=== PATIENT | female | born 1990 | race African-American/Black ===

== ENCOUNTER 2019-07-21 19:00 | Emergency (ER) | payer MEDICAID ==
[~2019-07-21] VITALS: Ht 165.1 cm; Wt 91.0 kg
[2019-07-21] MEDS ORDERED: CEFTRIAXONE 1 G PREMIX 50 ML IV ONE (23:30)
[2019-07-21] MEDS ORDERED: SODIUM CHLORIDE 0.9% 1000ML BAG (SEPSIS BOLUS) IV ONE (23:30)
[2019-07-22 00:48] LABS: BASOPHILS % 0.3 % (0.0-2.0); EOSINOPHILS % 0.3 % (0.0-5.0); INR 1.3; LYMPHOCYTES % 25.8 % (20.0-50.0); MEAN PLATELET VOLUME 8.7 fl (7.4-10.4); MONOCYTES % 9.1 % (2.0-8.0); NEUTROPHILS % 64.5 % (40.0-76.0); PLATELET 207 x1000/uL (130-400); PROTHROMBIN TIME 12.8 sec (9.6-11.0); RED BLOOD CELL COUNT 3.46 mill/uL (4.2-5.4); RED CELL DISTRIBUTION WIDTH 15.6 % (11.6-14.6)
[2019-07-22 00:52] LABS: CHLORIDE 104 mEq/L (98-107)
[2019-07-22 01:11] LABS: CLARITY URINE CLOUDY (CLEAR); COLOR URINE YELLOW (YELLOW); KETONES URINE 1+ (NEGATIVE); LEUKOCYTE ESTERASE URINE NEGATIVE (NEGATIVE); NITRITE URINE NEGATIVE (NEGATIVE); OCCULT BLOOD URINE NEGATIVE (NEGATIVE); PROTEIN URINE 1+ (NEGATIVE); SPECIFIC GRAVITY URINE 1.023 (1.005-1.030)
[2019-07-22] MEDS ORDERED: POTASSIUM CHLORIDE 20MEQ TABLET SR PO SCH (01:19)
[2019-07-22] MEDS ORDERED: ACETAMINOPHEN 500MG TABLET PO SCH (02:00)
[2019-07-22] MEDS ORDERED: KETOROLAC 15MG/ML VIAL IV SCH (02:00)
[2019-07-22 03:19] VITALS: BP 113/52
== END 2019-07-22 02:40 | disposition short-term general hospital (02) ==
LOC: ER 19:00 → CANBEDREQ 07-22 04:14
DX: L03.116 Cellulitis of left lower limb (principal); R50.9 Fever, unspecified; T36.8X5A Adverse effect of other systemic antibiotics, initial encounter; Y92.9 Unspecified place or not applicable
CPT/HCPCS: 36415; 71045; 80053; 81003; 83605; 84145; 84484; 85025; 85610; 87040; 87086; 87804; 93005; 96365; 96375; 99285; J0696; J1885; J7030

== ENCOUNTER 2022-04-22 04:48 | Emergency (ER) | payer MEDICAID, OTHER ==
[~2022-04-22] VITALS: Ht 175.3 cm; Wt 75.0 kg
[2022-04-22 04:52] VITALS: BP 130/90
[2022-04-22] MEDS ORDERED: BACITRACIN ZINC OINT UDPKT TOP ONE (05:30)
[2022-04-22] MEDS ORDERED: LIDOCAINE HCL/PF 1% 10 MG/ML 5ML VIAL INFIL ONE (05:30)
[2022-04-22] MEDS ORDERED: ACETAMINOPHEN WITH CODEINE 300/30MG TABLET PO ONE (05:30)
[2022-04-22] MEDS ORDERED: SULF1TAB48 MT (06:04)
[2022-04-22] MEDS ORDERED: CEPH500C2 MT (06:04)
== END 2022-04-22 06:53 | disposition home or self-care (01) ==
LOC: ER 04:48
DX: L02.415 Cutaneous abscess of right lower limb (principal); L03.115 Cellulitis of right lower limb
CPT/HCPCS: 10060; 99283; J3490; Z7610

== ENCOUNTER 2022-05-19 06:14 | Emergency (ER) | payer MEDICAID ==
[~2022-05-19] VITALS: Ht 160 cm; Wt 54.0 kg
[~2022-05-19 06:14] MED LIST: CEPH500C2 MT; SULF1TAB48 MT
[2022-05-19 06:15] VITALS: BP 128/83
[2022-05-19] MEDS ORDERED: ACETAMINOPHEN 325MG TABLET PO STA (07:57)
[2022-05-19 08:38] LABS: BASOPHILS % 0.6 % (0.0-2.0); EOSINOPHILS % 1.7 % (0.0-5.0); HEMATOCRIT. 37.1 % (36.0-48.0); HEMOGLOBIN. 12.1 g/dL (12.0-16.0); LYMPHOCYTES % 25.4 % (20.0-50.0); MEAN CORPUSCULAR HEMOGLOBIN 25.8 pg (28.0-32.0); MEAN CORPUSCULAR VOLUME 79.1 fL (81.0-99.0); MEAN PLATELET VOLUME 8.7 fl (7.4-10.4); MONOCYTES % 5.7 % (2.0-8.0); NEUTROPHILS % 66.6 % (40.0-76.0); PLATELET 456 x1000/uL (130-400); RED BLOOD CELL COUNT 4.69 mill/uL (4.2-5.4); RED CELL DISTRIBUTION WIDTH 15.8 % (11.6-14.6)
[2022-05-19 08:52] LABS: CHLORIDE 107 mEq/L (98-107)
[2022-05-19] MEDS ORDERED: POTASSIUM CHLORIDE 20MEQ TABLET SR PO NR (09:30)
[2022-05-19] MEDS ORDERED: CEPH500C2 MT (10:57)
[2022-05-19] MEDS ORDERED: POTA-204 MT (10:57)
[2022-05-19] MEDS ORDERED: IBUP-2029 MT (10:57)
[2022-05-19] MEDS ORDERED: CEPHALEXIN 250MG CAPSULE PO NR (11:00)
== END 2022-05-19 11:27 | disposition home or self-care (01) ==
LOC: ER 06:14
DX: L03.116 Cellulitis of left lower limb (principal); E87.6 Hypokalemia; Z13.9 Encounter for screening, unspecified
CPT/HCPCS: 36415; 80053; 85025; 93971; 99284

== ENCOUNTER 2023-10-18 12:48 | Emergency (ER) | payer MEDICAID ==
[~2023-10-18] VITALS: Ht 160 cm; Wt 59.0 kg
[~2023-10-18 12:48] MED LIST changes: +IBUP-2029 MT; +POTA-204 MT
[2023-10-18 13:01] VITALS: TEMP 97.8; O2SAT 100
[2023-10-18 16:03] LABS: BASOPHILS % 0.5 % (0.0-2.0); DIFFERENTIAL COMMENT 0; EOSINOPHILS % 1.6 % (0.0-5.0); HEMATOCRIT. 35.5 % (36.0-48.0); HEMOGLOBIN. 11.8 g/dL (12.0-16.0); MEAN CORPUSCULAR HEMOGLOBIN 25.5 pg (28.0-32.0); MEAN CORPUSCULAR HGB CONC 33.3 g/dL (31.0-37.0); MEAN CORPUSCULAR VOLUME 76.5 fL (81.0-99.0); MEAN PLATELET VOLUME 8.2 fl (7.4-10.4); MONOCYTES % 6.3 % (2.0-8.0); NEUTROPHILS % 75.6 % (40.0-76.0); PLATELET 312 x1000/uL (130-400); RED BLOOD CELL COUNT 4.64 mill/uL (4.2-5.4); RED CELL DISTRIBUTION WIDTH 15.9 % (11.6-14.6)
[2023-10-18 16:20] LABS: ALANINE AMINOTRANSFERASE 19 IU/L (10-49); ALBUMIN 4.2 g/dL (3.2-4.8); ASPARTATE AMINOTRANSFERASE 17 IU/L (<34); BILIRUBIN TOTAL 0.4 mg/dL (0.1-1.0); CALCIUM 9.1 mg/dL (8.7-10.4); CARBON DIOXIDE 30 mEq/L (21-32); CHLORIDE 108 mEq/L (98-107); CREATININE 0.5 mg/dL (0.6-1.0); GLUCOSE 94 mg/dL (70-105); POTASSIUM 3.5 mEq/L (3.5-5.1); PROTEIN TOTAL 8.1 g/dL (6.0-8.3); SODIUM 140 mEq/L (136-145); UREA NITROGEN BLOOD 16 mg/dL (9-23)
[2023-10-18 16:21] LABS: HCG SCREEN NEGATIVE
[2023-10-18 16:44] LABS: ETHANOL BLOOD < 10 mg/dL (<10)
[2023-10-18] MEDS ORDERED: AMOX1TAB16 MT (17:01)
[2023-10-18] MEDS ORDERED: IBUP-2029 MT (17:01)
[2023-10-18] MEDS ORDERED: AZIT250T12 MT (17:01)
[2023-10-18 17:23] VITALS: BP 146/90; PULSE 83; RESP 16
[2023-10-18] MEDS: IBUPROFEN 600MG TABLET PO ONE (17:23)
== END 2023-10-18 20:29 | disposition home or self-care (01) ==
LOC: ER 12:48
DX: J18.1 Lobar pneumonia, unspecified organism (principal); R07.81 Pleurodynia; Z79.899 Other long term (current) drug therapy; Y04.0XXA Assault by unarmed brawl or fight, initial encounter; Y93.89 Activity, other specified; Y92.89 Other specified places as the place of occurrence of the external cause; Y99.8 Other external cause status
CPT/HCPCS: 36415; 71045; 80053; 80320; 84703; 85025; 99284; G0480

== ENCOUNTER 2023-10-18 23:26 | Emergency (ER) | payer MEDICAID ==
[~2023-10-18] VITALS: Ht 170.2 cm; Wt 56.0 kg
[~2023-10-18 23:26] MED LIST changes: +AMOX1TAB16 MT; +AZIT250T12 MT
[2023-10-19 00:54] VITALS: BP 127/78; PULSE 60; RESP 14; TEMP 98.6; O2SAT 100
== END 2023-10-19 08:07 | disposition home or self-care (01) ==
LOC: ER 23:26
DX: Z00.00 Encounter for general adult medical examination without abnormal findings (principal); J18.9 Pneumonia, unspecified organism; R07.81 Pleurodynia; Z79.899 Other long term (current) drug therapy; Z90.89 Acquired absence of other organs
CPT/HCPCS: 99281